=== PATIENT | female | born 1965 | race African-American/Black ===

== ENCOUNTER 2023-09-25 11:25 | Inpatient (IN) | payer OTHER ==
[2023-09-25] MEDS ORDERED: BISMUTH SUBSALICYLATE 262 MG/15 ML BTL PO PRN (13:53)
[2023-09-25] MEDS ORDERED: ACETAMINOPHEN 325 MG TABLET (FP) PO PRN (13:53)
[2023-09-25] MEDS ORDERED: LOPERAMIDE HCL 2 MG CAPSULE PO PRN (13:53)
[2023-09-25] MEDS ORDERED: MAG HYDROX/AL HYDROX/SIMETH 30 ML UNIT-DOSE CUP PO PRN (13:53)
[2023-09-25] MEDS ORDERED: IBUPROFEN 400 MG TABLET (FP) PO PRN (13:53)
[2023-09-25] MEDS ORDERED: BENZOCAINE/MENTHOL (CHLORASEPTIC ) LOZENGE MM PRN (13:53)
[2023-09-25] MEDS ORDERED: NALOXONE HCL 0.4 MG/ML VIAL IM PRN (13:53)
[2023-09-25] MEDS ORDERED: POLYETHYLENE GLYCOL (HEALTHYLAX) 3350 17 GM PACKET PO PRN (13:53)
[2023-09-25] MEDS ORDERED: ONDANSETRON *ODT* 4 MG TABLET SL PRN (13:53)
[2023-09-25] MEDS ORDERED: NALOXONE (NARCAN) HCL 4 MG/0.1 ML SPRAY NS PRN (13:53)
[2023-09-25] MEDS ORDERED: MAGNESIUM HYDROX 2400MG/30ML ORAL SUSPENSION 30 ML CUP PO PRN (13:53)
[2023-09-25] MEDS ORDERED: IBUPROFEN 600 MG TABLET (FP) PO PRN (13:53)
[2023-09-25] MEDS ORDERED: DICYCLOMINE HCL 10 MG CAPSULE PO PRN (13:53)
[2023-09-25] MEDS ORDERED: guaiFENesin 600 MG TABLET.ER (FP) PO PRN (13:53)
[2023-09-25] MEDS ORDERED: BENZONATATE 200 MG CAPSULE PO PRN (13:53)
[2023-09-25] MEDS ORDERED: cloNIDine HCL 0.1 MG TABLET ONE (14:28)
[2023-09-25] MEDS ORDERED: amLODIPine BESYLATE 5 MG TABLET (FP) ONE (14:28)
[2023-09-25] MEDS ORDERED: NICOTINE 7 MG/24 HOURS TOPICAL PATCH TD ONE (14:29)
[2023-09-25] MEDS ORDERED: PRENATAL VITAMINS W/ FOLIC ACID TABLET (FP) PO ONE (14:29)
[2023-09-25] MEDS: NICOTINE 7 MG/24 HOURS TOPICAL PATCH TD SCH (14:33)
[2023-09-25] MEDS: PRENATAL VITAMINS W/ FOLIC ACID TABLET (FP) PO SCH (14:33)
[2023-09-25] MEDS: cloNIDine HCL 0.1 MG TABLET PO ONE (14:34)
[2023-09-25] MEDS: amLODIPine BESYLATE 5 MG TABLET (FP) PO SCH (14:34)
[2023-09-25] MEDS: OLANZapine 5 MG TABLET PO ONE (14:47)
[2023-09-25 15:13] VITALS: BMI 22.8
[2023-09-25] MEDS: THIAMINE 100 MG TABLET PO SCH (21:23)
[2023-09-25] MEDS: MELATONIN 5 MG TABLETS PO SCH (21:23)
[2023-09-25] MEDS: OLANZapine 5 MG TABLET PO SCH (21:23)
[2023-09-26] MEDS: METHOCARBAMOL 500 MG TABLET PO PRN (07:11)
[2023-09-26] MEDS: hydrOXYzine PAMOATE 25 MG CAPSULE (FP) PO PRN (07:11)
[2023-09-26 11:50] LABS: CHLORIDE 108 mmol/L (98-107); POTASSIUM 3.9 mmol/L (3.5-5.1); SODIUM 140 mmol/L (136-145)
[2023-09-26 11:51] LABS: HEMATOCRIT 35.1 % (32.4-45.2); HEMOGLOBIN 11.8 GM/dL (10.7-15.3); MCH 30.7 pg (25.7-33.7); MCHC 33.5 g/dl (32.0-36.0); MEAN CELL VOLUME 91.8 fl (80-96); MEAN PLT VOLUME 6.7 fl (7.5-11.1); PLATELET COUNT 296 10^3/uL (134-434); RBC 3.82 M/mm3 (3.60-5.2); RDW 15.7 % (11.6-15.6); WHITE BLOOD COUNT 5.1 K/mm3 (4.0-10.0)
[2023-09-26 12:18] LABS: BLOOD UREA NITROGEN 31.3 mg/dL (7-18); CALCIUM 9.3 mg/dL (8.5-10.1)
[2023-09-26 12:19] LABS: ALBUMIN 2.6 g/dl (3.4-5.0); ANION GAP 4 mmol/L (4-13); CO2 29 mmol/L (21-32); GLUCOSE,RANDOM 74 mg/dL (74-106)
[2023-09-26 12:23] LABS: CREATININE 0.8 mg/dL (0.55-1.3); SGOT/AST 16 U/L (15-37); SGPT/ALT 21 U/L (13-61)
[2023-09-26 12:24] LABS: BILIRUBIN,TOTAL 0.3 mg/dL (0.2-1); TOT PROT 7.6 g/dl (6.4-8.2)
[2023-09-26 12:26] LABS: ALK PHOS 109 U/L (45-117)
[2023-09-26 13:18] VITALS: RESP 16
[2023-09-26] MEDS ORDERED: LOSARTAN POTASSIUM 50 MG TABLET PO ONE (16:30)
[2023-09-26 18:07] LABS: HIV INTERPRETATION PRESUMPTIVE POSITIVE (NEGATIVE)
[2023-09-26 19:22] VITALS: BP 172/111; PULSE 97; TEMP 98.2
[2023-09-27] MEDS ORDERED: amLODIPine BESYLATE 10 MG TABLET (FP) PO SCH (10:00)
== END 2023-09-26 18:18 | disposition left against medical advice (07) | DRG 770 ==
LOC: YASAS 11:25 → Y6N 14:37
PROVIDERS: ADMIT Allergy & Immunology; ATTEND Surgery
PROC: HZ2ZZZZ Detoxification Services for Substance Abuse Treatment (ICD-10-PCS; principal; 2023-09-26)
DX: F10.230 Alcohol dependence with withdrawal, uncomplicated (principal); F14.20 Cocaine dependence, uncomplicated; F20.9 Schizophrenia, unspecified; F41.9 Anxiety disorder, unspecified; F32.A Depression, unspecified; Z21 Asymptomatic human immunodeficiency virus [HIV] infection status; Z91.148 Patient's other noncompliance with medication regimen for other reason; Z56.0 Unemployment, unspecified; Z59.00 Homelessness unspecified
CPT/HCPCS: 36415; 80053; 80305; 80307; 85027; 86593; 86780; 86803; 87389; 87522; 93005; 93010